=== PATIENT | male | born 1960 ===

== ENCOUNTER 2017-02-24 21:22 | Emergency (ER) | payer SELFPAY ==
[2017-02-24 22:08] VITALS: TEMP 98.1
[2017-02-24] MEDS ORDERED: Sodium Chloride 0.9% 500 ML IV ONE (22:12)
[2017-02-24] MEDS ORDERED: Sodium Chloride 0.9% 1,000 ML ONE (22:35)
[2017-02-24 22:53] LABS: BASO % 0.4 % (0.0-2.0); EOS % 0.3 % (0.0-4.0); HEMATOCRIT 44.5 % (35.0-51.0); LYMPH # 1.2 K/uL (1.0-4.3); LYMPH % 10.2 % (20.0-40.0); MEAN CELL VOLUME 94.3 fL (80.0-94.0); MEAN CORPUSCULAR HEMOGLOBIN 30.9 pg (27.0-31.0); MEAN CORPUSCULAR HGB CONC 32.8 g/dL (33.0-37.0); MEAN PLATELET VOLUME 7.2 fL (7.2-11.7); MONO # 0.5 K/uL (0.0-0.8); MONO % 4.6 % (0.0-10.0); NRBC % 0.1 % (0.0-2.0); RED CELL DISTRIBUTION WIDTH 12.9 % (11.5-14.5); WHITE BLOOD COUNT 11.3 K/uL (4.8-10.8)
[2017-02-24 22:56] LABS: RBC URINE 1 /hpf (0-3); URINE BILIRUBIN NEGATIVE (NEGATIVE); URINE BLOOD NEGATIVE (NEGATIVE); URINE COLOR Yellow (YELLOW); URINE GLUCOSE (UA) NORMAL (Normal); URINE KETONE NEGATIVE (NEGATIVE); URINE LEUKOCYTE ESTERASE NEG Leu/uL (Negative); URINE PROTEIN 1+ mg/dL (NEGATIVE); URINE UROBILINOGEN NORMAL mg/dL (0.2-1.0); WBC URINE < 1 /hpf (0-5)
[2017-02-24 23:02] LABS: CHLORIDE 101 mmol/L (98-107); POTASSIUM 4.4 mmol/L (3.6-5.2); SODIUM 138 mmol/L (132-148)
--- NOTE | 2017-02-24 23:02 | C.PDOC ---
History Of Present Illness Patient is a 56 year old male with a PMHx of HTN who presents to the ER with a complaint of dizziness and nausea for the past 2 days, associated with a spinning room sensation. Patient denies fever or pain. pt states no difficulty with ambulation. no ohara Time Seen by Provider: 02/24/17 22:00 Chief Complaint (Nursing): Dizziness/Lightheaded History Per: Patient History/Exam Limitations: no limitations Onset/Duration Of Symptoms: Days (2) Current Symptoms Are (Timing): Still Present Activity At Onset Of Symptoms: Other (Not known) Fall Associated With With Symptoms: No Recent travel outside of the [place]: No Past Medical History Reviewed: Historical Data, Nursing Documentation, Vital Signs Vital Signs: Last Vital Signs Temp 98.1 F 02/24/17 22:02 Pulse 57 L 02/24/17 23:51 Resp 18 02/24/17 23:51 BP 153/90 H 02/24/17 23:51 Pulse Ox 96 02/24/17 23:54 - Medical History PMH: HTN Surgical History: No Surg Hx Family History: States: Unknown Family Hx - Social History Hx Alcohol Use: No Hx Substance Use: No - Immunization History Hx Tetanus Toxoid Vaccination: No Hx Influenza Vaccination: No Hx Pneumococcal Vaccination: No Review Of Systems Constitutional: Negative for: Fever, Other (Pain) Gastrointestinal: Positive for: Nausea Neurological: Positive for: Dizziness, Other (Spinning room sensation) Physical Exam - Physical Exam Appears: Well, Non-toxic Skin: Normal Color, Warm, Dry Head: Atraumatic, Normacephalic Eye(s): bilateral: Other (Horizontal nystagmus) Oral Mucosa: Moist Chest: Symmetrical, No Tenderness Cardiovascular: Rhythm Regular, No Murmur Respiratory: Normal Breath Sounds, No Rales, No Rhonchi, No Wheezing Gastrointestinal/Abdominal: Soft, No Tenderness Neurological/Psych: Oriented x3, Normal Speech, Normal Cognition ED Course And Treatment - Laboratory Results Result Diagrams: 02/24/17 22:50 02/24/17 22:50 O2 Sat by Pulse Oximetry: 96 (Room air) Pulse Ox Interpretation: Normal Medical Decision Making Medical Decision Making: suspected vertigo. pt neuro intact, ambulatory, steady gait, no direction changing nystagmus. r/o other metabolic etiology. less likely central vertigo Plan: * EKG * Blood work * Antivert PO * Zofran IVP * IV fluids * pt reassessed states symptoms improved. ambulatory steady gait. less likely central etiology. asking for d/c. ekg sinus josselin 53, no [address] changes. nonspecific leukocytosis. Disposition - Disposition Referrals: [facility] [Outside] [facility] [Outside] Neil Valdez MD [Staff Provider] - Hernandez Valdez MD [Staff Provider] - Disposition: HOME/ ROUTINE Disposition Time: 23:28 Condition: STABLE Additional Instructions: please follow up with your doctor. return to er with worsening symptoms or concerns. Prescriptions: Meclizine [Antivert] 25 mg PO Q6 PRN #30 tab PRN Reason: Dizziness Instructions: Vertigo (ED), Dizziness (ED) Print Language: GAMBIAN - Clinical Impression Clinical Impression: Dizziness - Scribe Statement The provider has reviewed the documentation as recorded by the Scribe Ryan Hunt All medical record entries made by the Scribe were at my direction and personally dictated by me. I have reviewed the chart and agree that the record accurately reflects my personal performance of the history, physical exam, medical decision making, and the department course for this patient. I have also personally directed, reviewed, and agree with the discharge instructions and disposition.
[2017-02-24 23:04] LABS: BILIRUBIN,TOTAL 0.8 mg/dL (0.2-1.3); GFR AFRICAN-AMERICAN > 60
[2017-02-24 23:05] LABS: ALB/GLOB RATIO 1.2 (1.0-2.1); ALKALINE PHOSPHATASE 60 U/L (38-126); ALT/SGPT 30 U/L (21-72); AST/SGOT 26 U/L (17-59); BLOOD UREA NITROGEN 16 mg/dL (9-20); CARBON DIOXIDE 24 mmol/L (22-30); GLUCOSE,RANDOM 130 mg/dL (75-110); TOTAL PROTEIN 8.1 g/dL (6.3-8.3)
[2017-02-24 23:52] VITALS: BP 153/90; PULSE 57; RESP 18
[2017-02-24 23:53] VITALS: O2SAT 96
--- NOTE | 2017-02-27 08:28 | CARD ---
APPROVED REPORT EKG Measurement Heart [id number] <Conclusion> Sinus bradycardia Inferior infarct, age undetermined Abnormal ECG
== END 2017-02-25 | disposition home or self-care (01) ==
LOC: C.ER 21:22
DX: R42 Dizziness and giddiness (principal)
CPT/HCPCS: 80053; 81001; 84484; 85025; 85610; 85730; 93005; 96361; 96374; 99284; J2405; J7040

== ENCOUNTER 2019-03-05 17:10 | Emergency (ER) | payer OTHER ==
[2019-03-05 17:21] VITALS: BMI 29.5
[2019-03-05 17:22] VITALS: BP 145/85; PULSE 74; RESP 18; TEMP 97.7; O2SAT 97
--- NOTE | 2019-03-05 18:06 | C.PDOC ---
History Of Present Illness 58 year old male presents to ED with complaint of pain to the right lower posterior rib area for the past 3 days. He states that the pain is worse with deep inspiration and movement. Patient is painless at rest. He denies trauma, fall, or rash. Time Seen by Provider: 03/05/19 17:25 Chief Complaint (Nursing): Back Pain History Per: Patient History/Exam Limitations: no limitations Onset/Duration Of Symptoms: Days (3) Current Symptoms Are (Timing): Still Present Quality Of Discomfort: "Pain" Previous Symptoms: None Exacerbating Factor(s): Movement, Other (deep breathes) Past Medical History Reviewed: Historical Data, Nursing Documentation, Vital Signs Vital Signs: Last Vital Signs Temp 97.7 F 03/05/19 17:21 Pulse 74 03/05/19 17:21 Resp 18 03/05/19 17:21 BP 145/85 03/05/19 17:21 Pulse Ox 97 03/05/19 17:21 Primary Care Provider: FAMILY PROVIDER,NO - Medical History PMH: HTN Surgical History: No Surg Hx Family History: States: Unknown Family Hx - Social History Hx Alcohol Use: No Hx Substance Use: No - Immunization History Hx Tetanus Toxoid Vaccination: No Hx Influenza Vaccination: No Hx Pneumococcal Vaccination: No Review Of Systems Constitutional: Negative for: Fever, Chills, Weakness Cardiovascular: Positive for: Chest Pain (right lower posterior rib area) Skin: Negative for: Rash Neurological: Negative for: Weakness, Numbness Physical Exam - Physical Exam Appears: Non-toxic, No Acute Distress, Other (elderly, male; mild distress with right lower back movement) Skin: Normal Color, Warm, Dry Head: Atraumatic, Normacephalic Neck: Normal ROM, Supple Chest: Symmetrical, No Deformity, Tenderness (to the intercostal area of T9-T10, mid- scapular area), No Ecchymosis, No Other (deformity or rash) Cardiovascular: Rhythm Regular, No Murmur Respiratory: No Accessory Muscle Use, No Rales, No Rhonchi, No Wheezing Back: Other Extremity: Normal ROM, Capillary Refill (<2 seconds) Neurological/Psych: Oriented x3, Normal Speech, Normal Cognition, Normal Motor, Normal Sensation ED Course And Treatment O2 Sat by Pulse Oximetry: 97 (in RA) Pulse Ox Interpretation: Normal Progress Note: Patient given Motrin PO. Patient is resting comfortably, in no acute distress and stable for discharge. Patient advised to follow up with clinic. Patient advised to return to ED if symptoms persist or worsen. Medical Decision Making Medical Decision Making: R posterior lower intercostal rib discomfort no rash no fall worse with heat therapies and massages costochondritis Disposition Doctor Will See Patient In The: Office Counseled Patient/Family Regarding: Studies Performed, Diagnosis - Disposition Referrals: [facility] [Outside] [facility] [Outside] [facility] [Outside] [place] [facility] [Outside] Disposition: HOME/ ROUTINE Disposition Time: 18:05 Condition: GOOD Additional Instructions: [place] 1/2 hora por hora, nada caliente ibuprofeno/advil 400-600 mg cada 6 horas abhinav necessario NADA caliente, ni massage, ni [place]'s! Instructions: Costochondritis Forms: [employer] (Indonesian) Print Language: AMHARIC - Clinical Impression Clinical Impression: Rib pain - Scribe Statement The provider has reviewed the documentation as recorded by the Scribe (Elizabeth Vizcarra) All medical record entries made by the Scribe were at my direction and personally dictated by me. I have reviewed the chart and agree that the record accurately reflects my personal performance of the history, physical exam, medical decision making, and the department course for this patient. I have also personally directed, reviewed, and agree with the discharge instructions and disposition.
== END 2019-03-05 18:50 | disposition home or self-care (01) ==
LOC: C.ER 17:10
DX: R07.81 Pleurodynia (principal); I10 Essential (primary) hypertension